=== PATIENT | female | born 1960 | race Caucasian/White ===

== ENCOUNTER → 2024-03-12 | Outpatient (CLI) | payer MEDICARE, MEDICAID, SELFPAY ==
--- NOTE | 2024-03-12 13:00 | XR_ITS ---
Examination: Screening digital mammography, bilateral Computer aided detection 3-D breast Tomosynthesis, bilateral Date and time of exam: March 12, 2024 1329 hours No priors Indication: Screening, family history, mother breast cancer Technique: Nonmagnified MLO, CC views of the breasts to been obtained, reconstructed from 3-D Tomosynthesis images. R2 computer aided detection program utilized for evaluation of suspicious masses and/or abnormal calcifications. 3-D Tomosynthesis images obtained. Findings: Scattered areas of fibroglandular density. Benign calcifications. No suspicious mass Impression: BI-RADS category II: Benign Findings. Recommend 1 year follow-up mammogram.
== END | disposition home or self-care (01) ==
LOC: CDIM 13:12
PROVIDERS: PCP Nurse Practitioner Family; Referring Provider Nurse Practitioner Family; Visit Provider Nurse Practitioner Family
DX: Z12.31 Encounter for screening mammogram for malignant neoplasm of breast (principal); R92.323 Mammographic fibroglandular density, bilateral breasts; R92.1 Mammographic calcification found on diagnostic imaging of breast; Z80.3 Family history of malignant neoplasm of breast
CPT/HCPCS: 77063; 77067

== ENCOUNTER → 2024-09-12 | Outpatient (CLI) | payer MEDICARE, MEDICAID, SELFPAY ==
--- NOTE | 2024-09-12 10:00 | XR_ITS ---
Examination: Abdomen sonogram, complete Date and time of exam: September 12, 2024 10:14 AM indications: Diagnosis cirrhosis. Technique: Multiple real-time grayscale transabdominal sonographic images of the abdomen have been obtained. Findings: Absent gallbladder Common bile duct 0.3 cm Pancreatic head 2.2 cm Are not enlarged Liver 18.7 cm fatty infiltration Normal hepatopedal portal venous flow Patent IVC Right kidney 10.4 cm cortex 1.8 cm 10 mm upper pole cyst Left kidney 10.2 cm cortex 2.0 cm Moderate left renal parenchymal scar formation Splenomegaly, borderline 4.6 cm IMPRESSION: Normal common bile duct Moderate activity fatty liver Borderline splenomegaly
== END | disposition home or self-care (01) ==
PROVIDERS: Referring Provider Internal Medicine Gastroenterology; Visit Provider Internal Medicine Gastroenterology
DX: K76.0 Fatty (change of) liver, not elsewhere classified (principal); R16.1 Splenomegaly, not elsewhere classified
CPT/HCPCS: 76700

== ENCOUNTER 2024-11-27 09:55 | Emergency (ER) | payer MEDICARE, MEDICAID, SELFPAY ==
--- NOTE | 2024-11-27 09:56 | EKG_ITS ---
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
--- NOTE | 2024-11-27 10:07 | XR_ITS ---
Examination: AP chest single view TECHNIQUE: AP sitting portable chest single view Date and time: November 27, 2024 10:21 AM INDICATIONS: Chest pain today FINDINGS: Retrocardiac gastric hernia Minor prominence cardiac contour No pneumonia or pulmonary edema. Prominent osteopenia IMPRESSION: No active disease
--- NOTE | 2024-11-27 10:14 | EDNOTE_ITS ---
ED Arrhythmia Palp. RME/HPI General Chief Complaint: Arrhythmia/Palpitations Stated Complaint: AFIB Time Seen by Provider: 11/27/24 10:07 Arrival date/time: 11/27/24 09:55 RME / HPI RME / HPI narrative: DR. SHIELDS MAIN ED EVALUATION: 64-year-old female with past medical history of liver cirrhosis, esophageal varices, enlarged heart, depression, and GERD was sent to the Emergency Department from her PCP after being found to have an abnormal heart rhythm. Patient was seen at her PCP office earlier today for a weight-loss medication follow-up, which she started one month ago, she does not recall the name. She was noted to have palpitations and tachycardia in the 140's but denied chest pain, shortness of breath, dizziness, syncope, abdominal pain, nausea, vomiting, or diarrhea. She reports being asymptomatic aside from palpitations. EMS was called and documented vital signs of BP 110/79, HR 140s, O2 sat of 98% on room air. Related Data Previous Rx's ?Medication ?Instructions ?Recorded metoprolol tartrate 25 mg tablet 25 mg PO BID #60 tabs 11/27/24 Allergies Allergy/AdvReac Type Severity Reaction Status Date / Time tramadol Allergy Severe Rash Verified 11/27/24 10:27 Review of Systems Review of Systems Systems Reviewed: All systems reviewed, normal except as documented Past Medical History Social History SMOKING STATUS: Never smoker SUBSTANCE USE: does not use ALCOHOL: Never Past Medical History Comments PMH COMMENT: Liver cirrhosis, esophageal varices, enlarged heart, depression, and GERD; taking a weight-loss medication, she does not recall the name. ED Exam Narrative Physical exam: Constitutional: Awake, alert, nontoxic, no acute distress HEENT: NC, AT, EOMI Neck: Supple CV: Irregularly irregular, tachycardic Lungs: CTAB, no w/r/r, no respiratory distress. Abd: Soft, NT, NT, no HSM noted to palpation Extremities: No deformities, chronic venous changes bilaterally Neuro: AAOx3, CN 2-12 GIBL, no acute neuro deficit noted. Skin: Warm, dry, intact Course Course Course Narrative: 1349h: Patient's potassium noted to be low at 3.0. Replacement oral and IV ordered. Magnesium added. The remainder of the labs and imaging is negative at this time. Checked on patient, she appears well. No symptoms at present. Blood pressure noted to be a bit soft in the 90s systolic. Additional IV fluids ordered. Given low potassium, magnesium level was also checked, IV dose ordered as well, and PO dose of metoprolol ordered. HR currently high 90s. 1629: Discussed test HPI, PMHx, lab, radiology results and/or management with Dr. Lyons. Recommends outpatient care for his atrial fibrillation with metoprolol. Patient's blood pressure is stable and heart rate is stable. Fluids currently being given. Patient ended up being discharged in stable condition. Given prescription for metoprolol 25 mg twice daily for home. Advised on outpatient follow-up with cardiology. Stable for discharge. Return precautions advised. Quality Measures none Orders Category Date Time Status EKG (ED ONLY) *Do not use* NOW Care 11/27/24 09:56 Active EKG (ED Only) Stat Exams 11/27/24 09:56 Draft Arrhythmia/Palpitations MDM Narrative MDM Narrative:: I, Venessa Valencia, am scribing for and in the presence of Dr. Shields. Patient data External records reviewed:: [facility] previous records and EMS form Clinical information provided by:: patient and EMS Social determinants that could affect healthcare access:: none Patient has the following chronic illnesses:: Liver cirrhosis, esophageal varices, enlarged heart, depression, and GERD; taking a weight-loss medication, she does not recall the name. How is presenting disease/condition affected by chronic disease/condition?: exacerbated by Evaluation data The following diagnostics were reviewed and interpreted by me:: lab results, radiology exam(s) and EKG tracing(s) (My interpretation: EKG performed at 0957 hours, atrial fibrillation wth RVR, rate 125, no STEMI) Lab and/or radiology exams considered but not ordered:: none Interpretation Summary: Procedure(s): XR chest 1V portable Accession Number(s): [id number] cc: Binu Caballero MD; Luz Shields MD~ Examination: AP chest single view TECHNIQUE: AP sitting portable chest single view Date and time: November 27, 2024 10:21 AM INDICATIONS: Chest pain today FINDINGS: Retrocardiac gastric hernia Minor prominence cardiac contour No pneumonia or pulmonary edema. Prominent osteopenia IMPRESSION: No active disease Dictated By: Binu Caballero MD Medications / Prescriptions Medications or Prescriptions considered but not ordered:: none Medication administrations:: see above if any Consultations Consultation(s) initiated? (list below): Yes Consultation #1 (Physician, Specialty, Details): Discussed test HPI, PMHx, lab, radiology results and/or management with Dr. Allen rivers. Recommends outpatient care for his atrial fibrillation with metoprolol. Patient's blood pressure is stable and heart rate is stable. Fluids currently being given. Time: 16:29 Diagnosis Differential diagnosis arrhythmia/palpitations: other (Atrial fibrillation with RVR, supraventricular tachycardia, medication-induced tachycardia) Most likely diagnosis given after review of the tests above:: Atrial fibrillation Acute hypokalemia Admission Indicated Admission indicated?: not indicated Admission Request Was there a request for admission?: No Disposition Plan Disposition Plan: Discharge Discharge Attestation Discharge Attestation: The patient and all family members were given an opportunity to ask questions and understood the discharge instructions. Discharge instructions specifically effects, indications for sooner follow up or return to the emergency department, and the expected course of current diagnosis. Patient condition: Stable Discharge Plan Plan Patient Disposition: HOME (Self Care) Patient condition on transfer: Stable Prescriptions/Referrals Prescriptions/Med Rec: New metoprolol tartrate 25 mg tablet 25 mg PO BID Qty: 60 0RF Referrals: Yovany Sifuentes FNP [Primary Care Provider] - In 1 week Problem List Clinical Impression: Atrial fibrillation, Acute hypokalemia Patient/Caregiver Discharge Instructions Education Materials: AFL/Afib, Discharge Instructions for ..., Eating Heart- Healthy Foods, ED Hypokalemia Print Language: Namibian Stand Alone Forms: Cammy Award Info., Patient Portal Info Letter
[2024-11-27 10:18] VITALS: BP 115/63; PULSE 115; PULSE 121; PULSE 127; PULSE 140; RESP 18; RESP 20; TEMP 36.6; O2SAT 95; O2SAT 98; BMI 37.2
[2024-11-27 10:37] VITALS: BP 115/63; PULSE 114
[2024-11-27] MEDS: DILTIAZEM INJ 5 MG/ML VIAL 5 ML 20 MG IV (10:37)
[2024-11-27] MEDS: SODIUM CHLORIDE 0.9% 500 ML 500 ML 999 ML IV (10:39)
[2024-11-27 12:19] VITALS: BP 97/66; PULSE 79; RESP 15; O2SAT 96
[2024-11-27 12:21] LABS: Basophils # (Auto) 0.0 Thou/mm3 (0.0-0.2); Basophils % (Auto) 1 % (0-2.5); Eosinophils # (Auto) 0.2 Thou/mm3 (0.0-0.5); Eosinophils % (Auto) 3 % (0-10); Hematocrit 43.2 % (36.0-46.0); Hemoglobin 14.4 g/dL (12.0-16.0); Immature Granulocytes Auto 0.01 Thou/mm3 (0.00-0.00); Lymphocytes # (Auto) 1.7 Thou/mm3 (1.0-4.8); Lymphocytes % (Auto) 31 % (10-50); Mean Corpuscular HGB Conc 33.3 g/dl (31.0-37.0); Mean Corpuscular Hemoglobin 31.9 pg (25.0-35.0); Mean Corpuscular Volume 96 fL (80-100); Monocytes # (Auto) 0.5 Thou/mm3 (0.0-0.8); Monocytes % (Auto) 10 % (0-12); Neutrophils # (Auto) 3.0 Thou/mm3 (1.8-7.7); Neutrophils % (Auto) 56 % (37-80); Nucleated Red Blood Cell # 0.00 Thou/mm3 (0.00-0.00); Nucleated Red Blood Cell % 0 /100 WBC (0); Platelet Count 103 Thou/mm3 (140-440); RDW Standard Deviation 49.3 fL (36.4-46.3); Red Blood Count 4.52 Miln/mm3 (4.00-5.20); White Blood Count 5.4 Thou/mm3 (3.6-11.0)
[2024-11-27 12:39] LABS: B-Type Natriuretic Peptide 68 pg/mL (0-100)
[2024-11-27 13:03] LABS: Alanine Aminotransferase 16 U/L (10-49); Albumin, Serum 3.9 gm/dL (3.4-4.8); Albumin/Globulin Ratio 1.3 (1.2-2.2); Alkaline Phosphatase 59 U/L (46-116); Anion Gap 9 (7-16); Aspartate Amino Transferase 31 U/L (0-34); BUN/Creatinine Ratio 19 Ratio (12-20); Bilirubin,Total 0.9 mg/dL (0.3-1.2); Blood Urea Nitrogen 15 mg/dL (9-23); Calcium 9.3 mg/dL (8.3-10.6); Calcium (Corrected) 9.4 mg/dL (8.5-10.1); Carbon Dioxide 29.2 mMol/L (20.0-31.0); Chloride 106 mMol/L (98-107); Creatinine (Component) 0.8 mg/dL (0.6-1.3); Estimated Creatinine Clearance 75.9 mL/min (>60); Globulin 2.9 gm/dL (2.3-3.5); Glucose 87 mg/dL (74-106); Osmolality,Calculated 286 (275-295); Potassium 3.0 mMol/L (3.4-5.1); Sodium 144 mMol/L (136-145); Total Protein 6.8 gm/dL (5.7-8.2); Troponin I < 0.020 ng/mL (0.0-0.045); eGFR > 60 See Note
[2024-11-27] MEDS: POTASSIUM CHL 10 mEq IVPB 10 MEQ/100 ML BAG 100 MEQ IV (14:19)
[2024-11-27] MEDS: SODIUM CHLORIDE 0.9% 1000 ML 1,000 ML 999 ML IV ×2 (14:20→15:41)
[2024-11-27 14:24] VITALS: BP 92/69; PULSE 89
[2024-11-27 15:42] LABS: Free T4 (Free Thyroxine) 1.01 ng/dL (0.89-1.76); Magnesium 1.8 mg/dL (1.6-2.6); Thyroid Stimulating Hormone 2.03 uIU/mL (0.55-4.78)
[2024-11-27 16:59] VITALS: BP 106/83; PULSE 97
[2024-11-27] MEDS: METOPROLOL TARTRATE 25 MG TABLET PO (16:59)
[2024-11-27 17:13] VITALS: BP 106/83; PULSE 89; RESP 16; TEMP 36.6; O2SAT 99
== END 2024-11-27 17:13 | disposition home or self-care (01) ==
PROVIDERS: Emergency Provider Family Medicine
DX: I48.91 Unspecified atrial fibrillation (principal); E87.6 Hypokalemia; K74.60 Unspecified cirrhosis of liver; I85.10 Secondary esophageal varices without bleeding; K21.9 Gastro-esophageal reflux disease without esophagitis
CPT/HCPCS: 36415; 71045; 80053; 83735; 83880; 84439; 84443; 84484; 85025; 93005; 96361; 96365; 99284; J3480; J3490; J7030; J7999; A9270